=== PATIENT | female | born 1985 | race Caucasian/White ===

== ENCOUNTER → 2017-06-01 | Outpatient (CLI) | payer OTHER | LOC: FIMAGING 12:39 | PROVIDERS: ATTEND Midwife | DX: O99.281 Endocrine, nutritional and metabolic diseases complicating pregnancy, first trimester (principal); E03.9 Hypothyroidism, unspecified; Z87.59 Personal history of other complications of pregnancy, childbirth and the puerperium; Z82.79 Family history of other congenital malformations, deformations and chromosomal abnormalities; Z3A.12 12 weeks gestation of pregnancy ==